=== PATIENT | male | born 1990 ===

== ENCOUNTER 2017-04-05 15:12 | Emergency (ER) | payer OTHER ==
[2017-04-05 15:16] VITALS: RESP 18; TEMP 96.3; O2SAT 98
--- NOTE | 2017-04-05 16:17 | ED PDOC ---
HPI: General Adult Time Seen by Provider: 04/05/17 15:35 Chief Complaint (Nursing): Abnormal Skin Integrity Chief Complaint (Provider): Abscess History Per: Patient History/Exam Limitations: no limitations Onset/Duration Of Symptoms: Days Have you had recent travel within the past 21 days to any of the following countries: [place], [place], [place] or [place]?: No Current Symptoms Are (Timing): Still Present Location: Left infraauricular area Recent Trauma: Denies Recently: Seen In ED () Additional History Per: Patient Additional Complaint(s): 26 y/o M with no sginificant PMhx. smoker, presents with c/o L/infrauricular abscess. Patient states it started as a small "pimp" about a year ago and has been growing. About 4 days ago it became swollen and red and has been increasing in size fast. He went to ED at [facility] and was prescribed Keflex which he has been taking without improvement. Denies previous episodes in the past. Afebrile. Denies headache, ear pain, or any other symptoms. Past Medical History Vital Signs: Last Vital Signs Temp 96.3 F L 04/05/17 15:15 Pulse 101 H 04/05/17 15:15 Resp 18 04/05/17 15:15 BP 128/74 04/05/17 15:15 Pulse Ox 98 04/05/17 18:53 - Medical History PMH: No Chronic Diseases - Surgical History Surgical History: No Surg Hx - Family History Family History: States: No Known Family Hx - Social History Current smoker - smoking cessation education provided: Yes Drugs: Cannabis - Allergies Allergies/Adverse Reactions: Allergies Allergy/AdvReac Type Severity Reaction Status Date / Time No Known Allergies Allergy Verified 04/05/17 15:13 Review of Systems ROS Statement: Except As Marked, All Systems Reviewed And Found Negative Skin: Positive for: Lesions (L/infrauricular abscess) Physical Exam - Reviewed Nursing Documentation Reviewed: Yes Vital Signs Reviewed: Yes - Physical Exam Appears: Positive for: Non-toxic, No Acute Distress Head Exam: Positive for: ATRAUMATIC. Negative for: NORMAL INSPECTION (around 2 cm in diameter area of erythema, tenderness, abscess like swelling, fluctuating and tender to touch) Skin: Positive for: Warm Eye Exam: Positive for: EOMI, PERRL ENT: Positive for: Pharyngeal Erythema. Negative for: Nasal Congestion, Tonsillar Exudate, Tonsillar Swelling Neck: Positive for: Normal, Supple Respiratory: Positive for: Normal Breath Sounds. Negative for: Crackles, Rales , Wheezing Gastrointestinal/Abdominal: Positive for: Soft. Negative for: Tenderness, Guarding, Rebound Neurologic/Psych: Positive for: Alert, Oriented. Negative for: Motor/Sensory Deficits, Aphasia, Facial Droop - Laboratory Results Result Diagrams: 04/05/17 16:20 04/05/17 16:15 - ECG O2 Sat by Pulse Oximetry: 98 Medical Decision Making Medical Decision Making: Infra auricular abscess R/O Mastoiditis F/U CT mastoid, CBC, CMP Will f/u Disposition - Clinical Impression Clinical Impression: Ear problem, Abscess - Disposition Disposition Time: 19:02 Condition: FAIR Patient Signed Over To: Javon Ramirez (Pending CT)
[2017-04-05 16:24] LABS: BASO % 0.3 % (0.0-2.0); EOS # 0.1 K/uL (0.0-0.7); EOS % 1.2 % (0.0-4.0); HEMATOCRIT 42.6 % (35.0-51.0); LYMPH # 1.2 K/uL (1.0-4.3); LYMPH % 12.8 % (20.0-40.0); MEAN CELL VOLUME 92.1 fl (80.0-94.0); MEAN CORPUSCULAR HEMOGLOBIN 30.2 pg (27.0-31.0); MEAN CORPUSCULAR HGB CONC 32.8 g/dL (33.0-37.0); MEAN PLATELET VOLUME 11.8 fl (7.2-11.7); MONO # 0.8 K/uL (0.0-0.8); MONO % 8.3 % (0.0-10.0); NEUT % 77.4 % (50.0-75.0); NRBC % 0.1 % (0.0-0.0); RED CELL DISTRIBUTION WIDTH 13.1 % (11.5-14.5); WHITE BLOOD COUNT 9.1 K/uL (4.8-10.8)
[2017-04-05 16:36] LABS: ALB/GLOB RATIO 1.6 (1.0-2.1); ALKALINE PHOSPHATASE 44 U/L (38-126); ALT/SGPT 37 U/L (21-72); AST/SGOT 24 U/L (17-59); BILIRUBIN,TOTAL 0.6 mg/dl (0.2-1.3); BLOOD UREA NITROGEN 11 mg/dl (9-20); CALCIUM 8.9 mg/dL (8.4-10.2); CARBON DIOXIDE 25 mmol/L (22-30); CHLORIDE 107 mmol/L (98-107); GFR AFRICAN-AMERICAN > 60; GLUCOSE,RANDOM 84 mg/dL (75-110); POTASSIUM 4.3 MMOL/L (3.6-5.0); SODIUM 140 mmol/l (132-148); TOTAL PROTEIN 7.4 G/DL (6.3-8.2)
[2017-04-05 17:07] LABS: PARTIAL THROMBOPLASTIN TIME 32.2 Seconds (25.6-37.1)
--- NOTE | 2017-04-05 17:22 | ED PDOC ---
- Laboratory Results Result Diagrams: 04/05/17 16:20 04/05/17 16:15 - ECG O2 Sat by Pulse Oximetry: 98 (RA) Pulse Ox Interpretation: Normal - Progress ED Course And Treament: 185: Dr. Farrell to take over care. Devin on ct. Medical Decision Making Medical Decision Making: Time: 1700 --Patient endorsed to provider by Dr. Eugene Holley. Pending CT mastoid and bloodwork results for further evaluation. Scribe Attestation: Documented by Hetal Beck, acting as a scribe for Javon Ramirez MD. Provider Scribe Attestation: All medical record entries made by the Scribe were at my direction and personally dictated by me. I have reviewed the chart and agree that the record accurately reflects my personal performance of the history, physical exam, medical decision making, and the department course for this patient. I have also personally directed, reviewed, and agree with the discharge instructions and disposition. Disposition - Clinical Impression Clinical Impression: Ear problem - POA Present On Arrival: None - Disposition Disposition: Transfer of Care Disposition Time: 18:52 Condition: FAIR Patient Signed Over To: Nelly Farrell
[2017-04-05] MEDS ORDERED: Iohexol 300 100 ML IJ ONE (18:22)
[2017-04-05] MEDS ORDERED: Sodium Chloride 0.9% 50 ML IV ONE (18:23)
--- NOTE | 2017-04-05 19:31 | ED PDOC ---
- Laboratory Results Result Diagrams: 04/05/17 16:20 04/05/17 16:15 - ECG O2 Sat by Pulse Oximetry: 98 Medical Decision Making Medical Decision Making: Time: 1899 --Patient was endorsed to provider by Dr. Javon Ramirez. Pending CT results and final disposition. ___ Time: 2046 --CT mastoid FINDINGS: SINUSES: Visualized paranasal sinuses are clear. MASTOID AIR CELLS: Bilateral mastoid air cells appear clear. AUDITORY SYSTEM: Soft tissue in the external auditory canals bilaterally, most likely representing bilateral earwax, given the appearance. Middle ear cavities appear clear. No evidence of cholesteatoma. BONES/JOINTS: Temporomandibular joints are unremarkable bilaterally. SOFT TISSUES: Best seen on image 1 of series 2, there is a round, masslike area in the left facial soft tissues, anterior and inferior to the left ear. This is incompletely seen on this exam. It measures 1.8 x 1.6 cm. It has a fluid density center and an enhancing soft tissue rim. It is superficially located, in the subcutaneous fat just deep to the skin surface and superficial to the left parotid gland. It does not contain gas. The visualized portions of the left parotid gland appear unremarkable. IMPRESSION: - 1.8 cm round, masslike area with a fluid density center and an enhancing soft tissue rim in the left facial soft tissues, anterior and inferior to the left ear, just deep to the skin surface, superficial to the left parotid gland. This could represent a soft tissue abscess or a necrotic lymph node. It is incompletely seen on this exam. There is no associated gas. - No evidence of mastoiditis or otitis media. - See above for remaining findings. Time: 2119 --Needle aspiration of left-sided facial abscess (see procedure note). --Upon provider reevaluation, patient is feeling better, medically stable and requires no further treatment in the ED at this time. Patient will be discharged home with Rx for Cleocin 300mg. Counseling was provided and all questions were answered regarding diagnosis need for follow up with PCP. There is agreement to discharge plan. Return if symptoms persist or worsen. Clinical Impression: Facial abscess Scribe Attestation: Documented by Hetal Beck, acting as a scribe for Nelly Farrell MD. Provider Scribe Attestation: All medical record entries made by the Scribe were at my direction and personally dictated by me. I have reviewed the chart and agree that the record accurately reflects my personal performance of the history, physical exam, medical decision making, and the department course for this patient. I have also personally directed, reviewed, and agree with the discharge instructions and disposition. Disposition Doctor Will See Patient In The: Office Counseled Patient/Family Regarding: Studies Performed, Diagnosis, Need For Followup - Clinical Impression Clinical Impression: Ear problem, Abscess, Facial abscess - POA Present On Arrival: None - Disposition Referrals: Abhijeet Curiel MD [Staff Provider] - Disposition: Routine/Home Disposition Time: 21:22 Condition: GOOD Additional Instructions: Take your medications . Follow up with your PCP in 2-3 days. Prescriptions: Clindamycin [Cleocin] 300 mg PO TID #21 cap Instructions: Abscess (ED) Procedures - Time-Out Type of Procedure: Needle aspiration of abscess Site of Procedure: left-sided face Correct Patient: Yes Correct Procedure: Yes Correct Site Marked: Yes X-Ray Marked: No Physician Name: Orbelyan - Additional Procedures Progress: Time: 2119 --Site cleaned with antiseptic. --Anesthesia used: lidocaine 1% locally. --Aspirated abscess with 18 gauge needle. --2cc of purulent pus obtained. --Patient tolerated procedure well.
--- NOTE | 2017-04-05 20:47 | CT ---
EXAM: CT Temporal Bones With Intravenous Contrast EXAM DATE/TIME: 04/05/2017 3:48 PM CLINICAL HISTORY: 26 years old, male; Signs and symptoms; Mass, lump, or swelling; Other: Below earlobe; Additional info: Left mastoid abscess poss mastoiditis TECHNIQUE: Axial computed tomography images of the orbits with intravenous contrast. All CT scans at this facility use one or more dose reduction techniques, viz.: automated exposure control; ma/kV adjustment per patient size (including targeted exams where dose is matched to indication; i.e. head); or iterative reconstruction technique. Coronal and sagittal reformatted images were created and reviewed. CONTRAST: 90 mL of omnipaque 300 administered intravenously. COMPARISON: No relevant prior studies available. FINDINGS: SINUSES: Visualized paranasal sinuses are clear. MASTOID AIR CELLS: Bilateral mastoid air cells appear clear. AUDITORY SYSTEM: Soft tissue in the external auditory canals bilaterally, most likely representing bilateral earwax, given the appearance. Middle ear cavities appear clear. No evidence of cholesteatoma. BONES/JOINTS: Temporomandibular joints are unremarkable bilaterally. SOFT TISSUES: Best seen on image 1 of series 2, there is a round, masslike area in the left facial soft tissues, anterior and inferior to the left ear. This is incompletely seen on this exam. It measures 1.8 x 1.6 cm. It has a fluid density center and an enhancing soft tissue rim. It is superficially located, in the subcutaneous fat just deep to the skin surface and superficial to the left parotid gland. It does not contain gas. The visualized portions of the left parotid gland appear unremarkable. IMPRESSION: - 1.8 cm round, masslike area with a fluid density center and an enhancing soft tissue rim in the left facial soft tissues, anterior and inferior to the left ear, just deep to the skin surface, superficial to the left parotid gland. This could represent a soft tissue abscess or a necrotic lymph node. It is incompletely seen on this exam. There is no associated gas. - No evidence of mastoiditis or otitis media. - See above for remaining findings.
[2017-04-05] MEDS ORDERED: Lidocaine 1% Inj (20ml) ONE (21:06)
[2017-04-05 21:32] VITALS: BP 106/69; PULSE 67
== END 2017-04-05 21:33 | disposition home or self-care (01) ==
LOC: H.ER 15:12
DX: L02.01 Cutaneous abscess of face (principal); F17.200 Nicotine dependence, unspecified, uncomplicated
CPT/HCPCS: 70481; 80053; 85025; 85610; 85730; 87070; 99284; Q9967